=== PATIENT | female | born 1940 | race Two or more races ===

== ENCOUNTER 2018-05-25 08:06 | Outpatient (CLI) | payer OTHER ==
[~2018-05-25 08:06] MED LIST: COZAAR50 MG PO
== END 2018-05-25 12:39 | disposition home or self-care (01) ==
LOC: MAMO-SONO 08:06
DX: N60.11 Diffuse cystic mastopathy of right breast (principal); N60.12 Diffuse cystic mastopathy of left breast; C50.412 Malignant neoplasm of upper-outer quadrant of left female breast

== ENCOUNTER 2018-12-07 07:35 | Outpatient (CLI) | payer OTHER | END 2018-12-07 07:59 | disposition home or self-care (01) | LOC: MAMO-SONO 07:35 → SONOGRAMA 07:35 → MAMO-SONO 07:59 | DX: C50.412 Malignant neoplasm of upper-outer quadrant of left female breast (principal); N60.11 Diffuse cystic mastopathy of right breast; N60.12 Diffuse cystic mastopathy of left breast ==

== ENCOUNTER 2019-06-27 09:48 | Outpatient (CLI) | payer OTHER | END 2019-06-27 10:06 | disposition home or self-care (01) | LOC: MAMO-SONO 09:48 | DX: C50.412 Malignant neoplasm of upper-outer quadrant of left female breast (principal); N60.11 Diffuse cystic mastopathy of right breast; N60.12 Diffuse cystic mastopathy of left breast ==

== ENCOUNTER 2020-09-23 11:24 | Outpatient (CLI) | payer OTHER | END 2020-09-23 11:35 | disposition home or self-care (01) | LOC: MAMO-SONO 11:24 | PROVIDERS: ATTEND Surgery | DX: R92.2 Inconclusive mammogram (principal); C50.412 Malignant neoplasm of upper-outer quadrant of left female breast; N60.11 Diffuse cystic mastopathy of right breast; N60.12 Diffuse cystic mastopathy of left breast ==

== ENCOUNTER 2021-12-16 13:29 | Outpatient (CLI) | payer OTHER | END 2021-12-16 13:49 | disposition home or self-care (01) | LOC: MAMO-SONO 13:29 | PROVIDERS: ATTEND Surgery | DX: C50.412 Malignant neoplasm of upper-outer quadrant of left female breast (principal); N60.11 Diffuse cystic mastopathy of right breast; N60.12 Diffuse cystic mastopathy of left breast ==

== ENCOUNTER 2023-02-10 09:52 | Outpatient (CLI) | payer OTHER | END 2023-02-10 10:00 | disposition home or self-care (01) | LOC: RAD 09:52 | PROVIDERS: ATTEND Internal Medicine | DX: M54.17 Radiculopathy, lumbosacral region (principal) ==

== ENCOUNTER 2023-04-12 12:33 | Outpatient (CLI) | payer OTHER | END 2023-04-12 12:34 | disposition home or self-care (01) | LOC: NUCLEAR 12:33 | PROVIDERS: ATTEND Internal Medicine | DX: M81.0 Age-related osteoporosis without current pathological fracture (principal) ==

== ENCOUNTER 2023-08-24 11:47 | Outpatient (CLI) | payer OTHER | END 2023-08-24 13:27 | disposition home or self-care (01) | LOC: MAMO-SONO 11:47 | PROVIDERS: ATTEND Surgery | DX: C50.412 Malignant neoplasm of upper-outer quadrant of left female breast (principal); N60.11 Diffuse cystic mastopathy of right breast; N60.12 Diffuse cystic mastopathy of left breast ==

== ENCOUNTER 2024-06-13 08:17 | Outpatient (CLI) | payer OTHER | END 2024-06-13 08:35 | disposition home or self-care (01) | LOC: TOM 08:17 | PROVIDERS: ATTEND Internal Medicine Gastroenterology | DX: R19.5 Other fecal abnormalities (principal) ==

== ENCOUNTER 2024-06-19 07:23 | Outpatient (CLI) | payer OTHER ==
[2024-06-19 08:00] LABS: HEMATOCRIT 31.2 % (36.0-45.00); HEMOGLOBIN 10.3 g/dL (12.0-15.00); MEAN CELL VOLUME 86.8 fL (80.00-100.00); MEAN CORPUSCULAR HEMOGLOBIN 28.7 pg (27.00-32.0); MEAN CORPUSCULAR HGB CONC 33.1 g/dl (32.0-36.0); PLATELET COUNT 289 K/uL (150-450); RED BLOOD COUNT 3.59 M/uL (4.00-6.00)
[2024-06-19 08:39] LABS: ALBUMIN 3.2 gm/dL (3.4-5.0); BILIRUBIN TOTAL 0.26 mg/dL (0.3-1.2); CALCIUM 8.9 mg/dL (8.5-10.1); CREATININE SERUM 0.9 mg/dL (0.55-1.02); GFR 59.8; GLOBULINA 3.3 G/DL (2.4-3.5); POTASSIUM 4.33 mEq/L (3.5-5.1); TOTAL PROTEIN 6.5 gm/dL (6.4-8.2)
== END 2024-06-19 07:29 | disposition home or self-care (01) ==
LOC: LAB 07:23
PROVIDERS: ATTEND Surgery
DX: C18.4 Malignant neoplasm of transverse colon (principal); D50.9 Iron deficiency anemia, unspecified; K92.2 Gastrointestinal hemorrhage, unspecified

== ENCOUNTER 2024-06-26 07:28 | Day surgery (SDC) | payer OTHER ==
[2024-06-26] MEDS ORDERED: NALOXONE HCL 0.4 MG/ML AMPUL IV STA (08:51)
[2024-06-26] MEDS ORDERED: FLUMAZENIL 0.5 MG/5 ML ML IV STA (08:51)
[2024-06-26] MEDS ORDERED: MIDAZOLAM HCL 2 MG/2 ML VIAL IV ONE (09:00)
[2024-06-26] MEDS ORDERED: fentaNYL CITRATE 50 MCG/ML AMPUL IV PUSH ONE (09:00)
[2024-06-26] MEDS ORDERED: DIPHENHYDRAMINE HCL 50 MG/ML VIAL 1ML IV ONE (09:00)
== END 2024-06-26 11:20 | disposition home or self-care (01) ==
LOC: AMB-ENDOS 07:28
PROVIDERS: ATTEND Surgery
DX: D12.4 Benign neoplasm of descending colon (principal); D12.5 Benign neoplasm of sigmoid colon; K63.5 Polyp of colon; D37.4 Neoplasm of uncertain behavior of colon; K57.30 Diverticulosis of large intestine without perforation or abscess without bleeding; Z88.2 Allergy status to sulfonamides; Z91.018 Allergy to other foods; Z91.013 Allergy to seafood